=== PATIENT | female | born 1960 | race Caucasian/White ===

== ENCOUNTER 2023-07-21 15:43 | Outpatient (OUT) | payer BC, SELFPAY ==
--- NOTE | 2023-07-21 15:48 | MM_ITS ---
Patient: MARCOS DENTON Exam Date: 07/21/2023 : 1960 Gender:F Ordering : DR JOLENE HINOJOSA M.D. Admission #: [id number] Family : Order #: [id number] CLICK HERE TO VIEW EXAM RADIOLOGY REPORT PROCEDURE: MM TOMOSYNTHESIS SCREENING BI COMPARISON: MG MAMM SCREEN 3D ISA CAD, 01/21/2022. MG MAMM RT DIAG FU, 12/13/2018. INDICATIONS: Screening Calculator Name NCI Breast Cancer Risk Assessment Tool 5 Year Breast Cancer Risk 1.30% Lifetime Breast Cancer Risk 5.20% Personal Breast Cancer No Personal Ovarian Cancer No Treatments None Family Cancers Aunt-paternal with colon cancer at age ~60; Uncle-paternal with colon cancer at age 60. LOCATION: [facility] BREAST COMPOSITION: Heterogeneously dense,which may obscure small masses. FINDINGS: DIAGNOSTIC CATEGORY 1--NEGATIVE. NO CHANGE FROM COMPARISON ASSESSMENT. Scattered benign-appearing calcifications are present. Scattered benign-appearing lymph nodes are present. RIGHT BREAST: No significant suspicious finding. LEFT BREAST: No significant suspicious finding. RECOMMENDATIONS: ROUTINE MAMMOGRAM AND CLINICAL EVALUATION IN 12 MONTHS. PLEASE NOTE: A NORMAL MAMMOGRAM DOES NOT EXCLUDE THE POSSIBILITY OF BREAST CANCER. A CLINICALLY SUSPICIOUS PALPABLE LUMP SHOULD BE BIOPSIED. Dictated by: Norman Urban MD on 07/22/2023 at 08:09 Approved by: Norman Urban MD on 07/22/2023 at 08:11
== END 2023-07-21 15:44 | disposition home or self-care (01) ==
LOC: MAMMO 15:43
PROVIDERS: PCP Family Medicine; Visit Provider Family Medicine
DX: Z12.31 Encounter for screening mammogram for malignant neoplasm of breast (principal); Z80.0 Family history of malignant neoplasm of digestive organs
CPT/HCPCS: 77063; 77067

== ENCOUNTER 2024-04-24 11:28 | Outpatient (OUT) | payer MEDICARE, SELFPAY ==
--- OUTSIDE RECORDS SUMMARY | 2024-04-24 11:36 | XMS_ITS | CCD ---
Author Organization [facility] Care Team Providers Care Hand Clerical Verifier Name Role Phone Trudy Saucedo Unavailable DR TRUDY SAUCEDO Primary Care Unavailable PABLO GALLEGO Attending Unavailable PABLO GALLEGO Consulting Unavailable PABLO GALLEGO Admitting Unavailable REQUEST, NONE LISTED Consulting Unavaila ble REQUEST, NONE LISTED Admitting Unavaila ble MICAELA, DR TRUDY Mcpherson Primary Care Unavailable REQUEST, NONE LISTED Attending Unavaila ble MICAELA, DR TRUDY Mcpherson Attending Unavailable MICAELA, DR TRUDY Mcpherson Primary Care Unavailable SAUCEDO, DR TRUDY Mcpherson Admitting Unavailable BLOOMING GROVE, DR KARYN Cid Consulting Unavailable MICAELA, DR TRUDY Mcpherson Consulting Unavailable MD Xiang Reynsoo II Attending Provider [phone] Xiang Reynoso II Admitting Xiang Hughes II Attending Unavailkadeem e Medications Current Medications Medication Drug Class(es) Dates Sig (Normalized) Sig (Original) Multi Complete - (1 source) Multi Complete - as directed Orally Active Problems Active Problems Problem Classification Problem Date Documented Da te Episodic/Chronic Other non-traumatic joint disorders (1 source) Pain in left hip Episodic Other non-traumatic joint disorders (1 source) Pain in left elbow Episodic Residual codes; unclassified (1 source) Family history of stroke; Translations: [Family history of stroke] Episodic Unclassified (1 source) Pain in left hip; Translations: [Pain in left hip] Onset: 03-09-2023 Past or Other Problems Problem Classification Problem Date Documented Da te Episodic/Chronic Other ear and sense organ disorders (3 sources) Otalgia, left ear; Translations: [OTALGIA LEFT EAR] Onset: 02-20-2022 Episodic Other screening for suspected conditions (not mental disorders or infectious disease) (4 sources) Encounter for screening mammogram for malignant neoplasm of breast; Translations: [ENC SCR MAMMO MALIG NEOPLASM BREAST] Onset: 01-21-2022 Episodic Otitis media and related conditions (1 source) Otitis media, unspecified, left ear; Translations: [OTITIS MEDIA UNSPECIFIED LEFT EAR] Onset: 02-22-2022 Episodic Residual codes; unclassified (1 source) Family history of malignant neoplasm of digestive organs; Translations: [FAM HX MALIG NEOPLASM DIGESTIV ORGN] Onset: 01-25-2022 Episodic Results Test Name Value Interpretation Reference Range Facility XR hip LT min 2V(w/wo pelvis )*on 03-09-2023 XR hip LT min 2V(w/wo pelvis)* [facility] [place] [address] [place] [address] XRay Report Signed Patient: Marcos Ojeda MR#: [id number] : 1960 Acct:[id number] Age/Sex: 62 / F ADM Date: 03/09/23 Loc: [facility] Room: Type: [facility] Attending Dr: Xiang Reynoso II, MD Copies to: Xiang Reynoso MD Ordering Provider: Xiang Reynoso MD Date of Service: 03/09/23 XR/XR hip LT min 2V(w/wo pelvis)*: Left hip pain XR hip LT min 2V(w/wo pelvis)* 03/09/2023 9:04 AM SIGNS AND SYMPTOMS: Left hip pain PROTOCOL: Frontal radiograph the pelvis with crosstable lateral view of the left hip COMPARISON: None FINDINGS: There is narrowing of the joint spaces of the hips, slightly greater on the left compared to the right. The bony ring of the pelvis is intact. There is no evidence of fracture or dislocation. Vascular calcifications are present in the pelvis. XR/XR hip LT min 2V(w/wo pelvis)* IMPRESSION: Mild degenerative changes are noted in the hips left greater than right. No fracture or dislocation. Impression dictated by: Jesus Duggan M.D.03/09/2023 2:31 PM Dictation Location: [place] [address] Transcribed By: BETHANY 03/09/23 1431 Dictated By: Jesus Duggan II, MD 03/09/23 1430 Signed By: 03/09/23 1431 Normal [facility] CBC AUTO DIFFon 01-13-2023 BASO # 0.1 103/ul Normal 0.0-0.1 [facility] Comment on above: Performed By: #### D ATCBC #### [facility] [address] [place] [address] Dr. Palak Dawson Basophils/100 WBC (Bld) 1.0 % Normal 0.2-2.0 [facility] Comment on above: Performed By: #### D ATCBC #### [facility] [address] [place] [address] Dr. Palak Dawson EO # 0.1 103/ul Normal 0.0-0.7 [facility] Comment on above: Performed By: #### D ATCBC #### [facility] [address] [place] [address] Dr. Palak Dawson Eosinophils/100 WBC (Bld) 2.5 % Normal 0.9-7.0 [facility] Comment on above: Performed By: #### D ATCBC #### [facility] [address] [place] [address] Dr. Palak Dawson Erythrocyte distribution width (RBC) [Ratio] 12.6 % Normal 11.0-15.0 [facility] Comment on above: Performed By: #### D ATCBC #### [facility] [address] [place] [address] Dr. Palak Dawson Hematocrit (Bld) [Volume fraction] 41.8 % Normal 36.0-48.0 [facility] Comment on above: Performed By: #### D ATCBC #### [facility] [address] [place] [address] Dr. Palak Dawson Hemoglobin (Bld) [Mass/Vol] 13.7 g/dL Normal 12.0-16.0 [facility] Comment on above: Performed By: #### D ATCBC #### [facility] [address] [place] [address] Dr. Palak Dawson IG # 0.01 10e3/ul Normal 0.00-0.03 [facility] Comment on above: Performed By: #### D ATCBC #### [facility] [address] [place] [address] Dr. Palak Dawson IG % 0.2 % Normal 0.0-0.5 [facility] Comment on above: Performed By: #### D ATCBC #### [facility] [address] [place] [address] Dr. Palak Dawson LYMPH # 1.0 103/ul Critically low 1.2-3.8 [facility] Comment on above: Performed By: #### D ATCBC #### [facility] [address] [place] [address] Dr. Palak Dawson Lymphocytes/100 WBC (Bld) 21.4 % Normal 20.5-60.0 [facility] Comment on above: Performed By: #### D ATCBC #### [facility] [address] [place] [address] Dr. Palak Dawson MCH (RBC) [Entitic mass] 28.2 pg Normal 26.7-34.0 [facility] Comment on above: Performed By: #### D ATCBC #### [facility] [address] [place] [address] Dr. Palak Dawson MCHC (RBC) [Mass/Vol] 32.8 g/dL Normal 29.9-35.2 [facility] Comment on above: Performed By: #### D ATCBC #### [facility] [address] [place] [address] Dr. Palak Dawson MCV (RBC) [Entitic vol] 86.0 fL Normal 81.0-99.0 [facility] Comment on above: Performed By: #### D ATCBC #### [facility] [address] [place] [address] Dr. Palak Dawson MONO # 0.4 103/ul Normal 0.3-0.8 [facility] Comment on above: Performed By: #### D ATCBC #### [facility] [address] [place] [address] Dr. Palak Dawson Monocytes/100 WBC (Bld) 7.8 % Normal 1.7-12.0 [facility] Comment on above: Performed By: #### D ATCBC #### [facility] [address] [address] [address] Palak Dawson NEUT # 3.2 103/ul Normal 1.4-6.5 [facility] Comment on above: Performed By: #### D ATCBC #### [facility] [address] [place] [address] [address] Palak Dawson Neutrophils/100 WBC (Bld) 67.1 % Normal 43.0-75.0 [facility] Comment on above: Performed By: #### D ATCBC #### [facility] [address] [place] [address] Dr. Palak Dawson Platelet mean volume (Bld) [Entitic vol] 10.3 fL Normal 9.5-13.5 [facility] Comment on above: Performed By: #### D ATCBC #### [facility] [address] [place] [address] Dr. Palak Dawson PLT 211 103/ul Normal 150-450 [facility] Comment on above: Performed By: #### D ATCBC #### [facility] [address] [place] [address] Dr. Palak Dawson RBC 4.86 106/ul Normal 4.20-5.40 [facility] Comment on above: Performed By: #### D ATCBC #### [facility] [address] [place] [address] Dr. Palak Dawson WBC 4.8 103/ul Normal 4.0-11.0 [facility] Comment on above: Performed By: #### D ATCBC #### [facility] [address] [place] [address] Dr. Palak Dawson CHERY- BMP WITH LIPIDon 2022 Anion gap [Moles/Vol] 9.1 mmol/L Normal [facility] Comment on above: Performed By: #### D ATBMP #### [facility] [address] [place] [address] Dr. Palak Dawson Calcium [Mass/Vol] 9.4 mg/dL Normal 8.5-10.1 [facility] Comment on above: Performed By: #### D ATBMP #### [facility] [address] [address] [address] Palak Dawson Chloride [Moles/Vol] 107 mmol/L Normal 98-107 [facility] Comment on above: Performed By: #### D ATBMP #### [facility] [address] [address] [address] Palak Dawson Cholesterol [Mass/Vol] 234 mg/dL Critically high <=200 [facility] Comment on above: Performed By: #### D ATBMP #### [facility] [address] [address] [address] Palak Dawson Cholesterol in HDL [Mass/Vol] 81 mg/dL Critically high 40-60 [facility] Comment on above: Performed By: #### D ATBMP #### [facility] [address] [address] [address] Palak Dawson Cholesterol in LDL [Mass/Vol] 135.6 mg/dL Normal [facility] Comment on above: Performed By: #### D ATBMP #### [facility] [address] [address] [address] Palak Dawson CO2 [Moles/Vol] 30.1 mmol/L Normal 21.0-32.0 [facility] Comment on above: Performed By: #### D ATBMP #### [facility] [address] [address] [address] Palak Dawson Creatinine [Mass/Vol] 0.83 mg/dL Normal 0.55-1.02 [facility] Comment on above: Performed By: #### D ATBMP #### [facility] [address] [address] [address] Palak Dawson EGFR-AF TURKISH >60 Normal >=60 [facility] Comment on above: Performed By: #### D ATBMP #### [facility] [address] [address] [address] Palak Dawson EGFR-NON AF TURKISH >60 Normal >=60 [facility] Comment on above: Performed By: #### D ATBMP #### [facility] [address] [address] [address] Palak Dawson Glucose [Mass/Vol] 90 mg/dL Normal 74-106 [facility] Comment on above: Performed By: #### D ATBMP #### [facility] [address] [address] [address] Palak Dawson HDL NORMAL > or = 60 mg/dl - LOW CARDIOVASCULAR RISK <40 mg/dl - HIGH CARDIOVASCULAR RISK Normal [facility] Comment on above: Performed By: #### D ATBMP #### [facility] [address] [address] [address] Palak Dawson LDL CALC NORMAL SEE BELOW Normal [facility] Comment on above: Result Comment: <100 mg/dl OPTIMAL 100 - 129 mg/dl NEAR OR ABOVE OPTIMAL 130 - 159 mg/dl BORDERLINE HIGH 160 - 189 mg/dl HIGH >190 mg/dl VERY HIGH Performed By: #### D ATBMP #### [facility] [address] [address] [address] Palak Dawson Potassium [Moles/Vol] 4.2 mmol/L Normal 3.5-5.1 [facility] Comment on above: Performed By: #### D ATBMP #### [facility] [address] [address] [address] Palak Dawson Sodium [Moles/Vol] 142 mmol/L Normal 136-145 [facility] Comment on above: Performed By: #### D ATBMP #### [facility] [address] [address] [address] Palak Dawson Triglyceride [Mass/Vol] 87 mg/dL Normal <=150 [facility] Comment on above: Performed By: #### D ATBMP #### [facility] [address] [address] [address] Palak Dawson Urea nitrogen [Mass/Vol] 20.0 mg/dL Critically high 7.0-18.0 [facility] Comment on above: Performed By: #### D ATBMP #### [facility] [address] [address] [address] Palak Dawson Urea nitrogen/Creatinine [Mass ratio] 24.1 mg/mg Normal [facility] Comment on above: Performed By: #### D ATBMP #### [facility] [address] [address] [address] Palak Dawson VLDL CALC 17.4 mg/dL Normal [facility] Comment on above: Performed By: #### D ATBMP #### [facility] [address] [address] [address] Palak Dawson GLYCOHEMOGLOBIN A1Con 2022 ADA RECOMMENDATION SEE BELOW Normal [facility] Comment on above: Result Comment: ADA RECOMMENDED LIMIT 4.0 - 6.0 ADA THERAPEUTIC TARGET < 7.0 ACTION SUGGESTED > 7.0 Performed By: #### D ATA1C #### [facility] [address] [address] [address] Palak Dawson Glucose [Mass/Vol] 105 mg/dL Normal [facility] Comment on above: Performed By: #### D ATA1C #### [facility] [address] [address] [address] Palak Dawson HbA1c (Bld) [Mass fraction] 5.3 % Normal 4.5-6.2 [facility] Comment on above: Performed By: #### D ATA1C #### [facility] [address] [address] [address] Palak Dawson MG MAMM SCREEN 3D ISA CADon 01-21-2022 MG MAMM SCREEN 3D ISA CAD Patient: MARCOS OJEDA Exam Date: 01/21/2022 : 1960 Gender:F Ordering : DR TRUDY SAUCEDO M.D. Admission #: [id number] Family : Order #: [id number] CLICK HERE TO VIEW EXAM RADIOLOGY REPORT PROCEDURE: MAMMOGRAM SCREENING 3D BILATERAL CAD COMPARISON: MG MAMM SCREEN ISA W CAD, 12/08/2018. MG MAMM RT DIAG FU, 12/13/2018. INDICATIONS: Screening mammography Calculator Name NCI Breast Cancer Risk Assessment Tool 5 Year Breast Cancer Risk 1.20% Lifetime Breast Cancer Risk 5.30% Personal Breast Cancer No Personal Ovarian Cancer No Treatments None Family Cancers Aunt-paternal with colon cancer at age 60; Uncle-paternal with colon cancer at age 60. LOCATION: [facility] BREAST COMPOSITION: Heterogeneously dense,which may obscure small masses. FINDINGS: DIAGNOSTIC CATEGORY 2--BENIGN FINDING. NO CHANGE FROM COMPARISON. Scattered benign-appearing calcifications are present. Scattered benign-appearing lymph nodes are present. RIGHT BREAST: No significant suspicious finding. LEFT BREAST: No significant suspicious finding. RECOMMENDATIONS: ROUTINE MAMMOGRAM AND CLINICAL EVALUATION IN 12 MONTHS. PLEASE NOTE: A NORMAL MAMMOGRAM DOES NOT EXCLUDE THE POSSIBILITY OF BREAST CANCER. A CLINICALLY SUSPICIOUS PALPABLE LUMP SHOULD BE BIOPSIED. Dictated by: Karyn Urban MD on 01/25/2022 at 07:28 Approved by: Karyn Urban MD on 01/25/2022 at 07:30 Normal [facility] Vital Signs Date Time Vital Sign Value Performing Clinician Facility 01-13-2023 10:30-0400 Body height 160.02 cm Trudy Saucedo Other [facility] Other 01-13-2023 10:30-0400 Body mass index (BMI) [Ratio] 26.04 kg/m2 Trudy Saucedo Other [facility] Other 01-13-2023 10:30-0400 Body weight 66.68 kg Trudy Saucedo Other [facility] Other 01-13-2023 10:30-0400 Diastolic blood pressure 62 mm[Hg] Trudy Saucedo Other [facility] Other 01-13-2023 10:30-0400 SaO2% (BldA) [Mass fraction] 97 % Trudy Saucedo Other [facility] Other 01-13-2023 10:30-0400 Systolic blood pressure 110 mm[Hg] Trudy Saucedo Other [facility] Other Encounters Encounter Date Encounter Type Care Provider Facility Start: 03-09-2023 End: 03-09-2023 ambulatory Xiang Reynoso II Facility:[facility] Start: 03-09-2023 End: 03-09-2023 ambulatory MD Xiang Reynoso II Work Phone: [facility] Work Phone: Start: 03-09-2023 End: 03-09-2023 Patient encounter procedure MD Xiang Reynoso II Work Phone: [facility] Start: 01-13-2023 Encounter for genera l adult medical examination without abnormal findings Trudy Saucedo [facility] Start: 01-13-2023 Periodic preventive med est patient 40-64yrs Trudy Saucedo [facility] Start: 01-13-2023 End: 01-14-[address] MEJIA LISTED REQUEST [facility] Other Start: 02-20-2022 End: 02-20-[address] TRUDY SAUCEDO Facility:[facility] Start: 01-21-2022 End: 01-22-[address] TRUDY SAUCEDO Facility:[facility] Procedures Date Procedure Procedure Detail Performing Clinician Start: 03-09-2023 Plain X-ray of left hip MD Xiang Reynoso II Work Phone: Payers Date Payer Category Payer [facility] [id number] 1961 Self-pay 1960 Unknown [id number] 1960 Unknown [id number] Unknown [id number] [id number] [id number] Unknown [id number] Social History Date Type Detail Facility Unknown if ever smoked [facility] Other Sex Assigned At Sex Assigned At Bir th [facility] Other Start: 1960 Sex Assigned At Female F [facility] Evaluation note 01-13-2023 Note Date & Type Note Facility 01-13-2023 Evaluation note Encounter Date Diagnosis Assessment Notes Jan, Wellness examination (ICD-10 - Z00.00) Discussed weight loss, diet/exercise and healthy lifestyle. He has been fully vaccinated for COVID-19. Health recommendations and screenings for his age reviewed and discussed with patient. Patient to f/u in 6 months, sooner as needed. Labs were placed and instructed to be fasting, will need to be completed prior to next apt. Jan, Left hip pain (ICD-10 - M25.552) Referral to Dr. Pollack Jan, Left elbow pain (ICD-10 - M25.522) Xray at [facility] - L hand dominant and nerve pain radiates to L hand with numbness. [facility] Other Evaluation note Note Date & Type Note Facility Evaluation note No assessment information availa [facility] Work Phone: History general Narrative - Reported Note Date & Type Note Facility History general Narrative - Reported Type Medical History Family history of stroke Surgical History COLONOSCOPY Surgical History TUBULAR ADENOMA Surgical History LASIK Surgical History HYST BSO Hospitalization History SEE SURGICAL HX [facility] [employer] Other Reason for Referral Reason *Waiting for appt 3 years of hip and mainly groin pain. Xray in 2020 showed mild arthritis Diagnosis 1 Left hip pain (M25.5 52) Referral Organization [facility] Referring Provider First Name Trudy Referring Provider Last Name Micaela Referring Provider Specialty Family [facility] Referred Organization Unknown Facility Referred Provider Xiang Reynoso II Referred Provider Specialty Orthopedic S urgery Referral Priority Routine General Notes Cathi Carrasco 12:42:40 PM >received tody, sent P2P Summary Purpose Family History No Family History Records FoundNo Family History Records Found Advance Directives No Advanced Directives Records FoundNo Advanced Directives Records Found Additional Source Comments REASON FOR VISIT (unrecogniz ed section and content) Wellness INFORMATION SOURCE (unrecogn ized section and content) DATE CREATED AUTHOR 01/13/2023 [facility] DATE CREATED AUTHOR 'S ORGANIZ ATION 03/14/2023 [facility] Care Teams (unrecognized sec tion and content) Team Status: Inactive Member Role Status Dates Xiang Reynoso II, MD Attending Provider Active Goals (unrecognized section and content) Goals may be documented in a n alternate section FOR RECORDS PERTAINING TO PATIENTS WHO ARE OR HAVE BEEN ENROLLED IN A CHEMICAL DEPENDENCY/SUBSTANCEABUSE PROGRAM, SOME INFORMATION MAY BE OMITTED. This clinical summary was aggregated from multiple sources. Caution should be exercised in using it in the provision of clinical care. This summary normalizes information from multiple sources, and as a consequence, information in this document may materially change the coding, format and clinical context of patient data. In addition, data may be omitted in some cases. CLINICAL DECISIONS SHOULD BE BASED ON THE PRIMARY CLINICAL RECORDS. [facility]. provides no warranty or guarantee of the accuracy or completeness of information in this document.
--- NOTE | 2024-04-24 11:42 | XR_ITS ---
[address] [address] Patient Name: MARCOS DENTON MRN: [id number] date: 1960 Sex: F Assigned Patient Location: LAB Current Patient Location: Accession/Order Number: [id number] Exam Date: 04/24/2024 11:43 Report Date: 04/25/2024 07:18 At the request of: JOLENE HINOJOSA Procedure: XR shoulder LT min 2V PROCEDURE: XR shoulder LT min 2V COMPARISON: None. HISTORY: Pain In Left Shoulder M25.512 FINDINGS: BONES:No acute fracture or dislocation. Mild degenerative changes of the greater tuberosity SOFT TISSUES:Negative. No visible soft tissue swelling. EFFUSION:None visible. OTHER: Negative. XR/XR shoulder LT min 2V IMPRESSION: No acute abnormality Electronically authenticated by: KARYN HUNTER Date: 04/25/2024 07:18
== END 2024-04-24 11:29 | disposition home or self-care (01) ==
LOC: LAB 11:32
PROVIDERS: PCP Family Medicine; Visit Provider Family Medicine
DX: M25.512 Pain in left shoulder (principal)
CPT/HCPCS: 73030

== ENCOUNTER 2024-05-02 09:52 | Outpatient (RCR) | payer MEDICARE, SELFPAY | END 2024-05-25 09:51 | disposition home or self-care (01) | LOC: PT 09:52 | PROVIDERS: PCP Family Medicine; Visit Provider Family Medicine | DX: M25.512 Pain in left shoulder (principal) | CPT/HCPCS: 97110; 97140; 97161; G0283 ==

== ENCOUNTER 2024-11-27 15:35 | Outpatient (OUT) | payer MEDICARE, SELFPAY ==
--- NOTE | 2024-11-27 15:39 | MM_ITS ---
Patient Name: MARCOS DENTON MR#: [id number] : 1960 Exam Date: 11/27/2024 Ordering Doctor: DR Trudy Saucedo M.D. RADIOLOGY REPORT PROCEDURE: MM TOMOSYNTHESIS SCREENING BI COMPARISON: MM TOMOSYNTHESIS SCREENING BI, 07/21/2023. MG MAMM SCREEN 3D ISA CAD, 01/21/2022. MG MAMM RT DIAG FU, 12/13/2018. MG MAMM ISA SCRN W CAD DIG, 07/18/2015. INDICATIONS: Screening Calculator Name NCI Breast Cancer Risk Assessment Tool 5 Year Breast Cancer Risk 1.30% Lifetime Breast Cancer Risk 4.80% Personal Breast Cancer No Personal Ovarian Cancer No Treatments None Family Cancers Aunt-paternal with colon cancer at age ~60; Uncle-paternal with colon cancer at age 60. LOCATION: [facility] BREAST COMPOSITION: The breasts are heterogeneously dense,which may obscure small masses. FINDINGS: LEFT BREAST: No significant suspicious finding. RIGHT BREAST: No significant suspicious finding. DIAGNOSTIC CATEGORY 1--NEGATIVE. NO CHANGE FROM COMPARISON ASSESSMENT. RECOMMENDATIONS: ROUTINE MAMMOGRAM AND CLINICAL EVALUATION IN 12 MONTHS. PLEASE NOTE: A NORMAL MAMMOGRAM DOES NOT EXCLUDE THE POSSIBILITY OF BREAST CANCER. A CLINICALLY SUSPICIOUS PALPABLE LUMP SHOULD BE BIOPSIED. Dictated by: Jesus Duggan MD on 11/27/2024 at 16:25 Approved by: Jesus Duggan MD on 11/27/2024 at 16:26
--- OUTSIDE RECORDS SUMMARY | 2024-11-27 15:48 | XMS_ITS | CCD ---
Author Organization [facility] Care Team Providers Care Job Developer Name Role Phone Trudy Hinojosa Unavailable DR TRUDY HINOJOSA Primary Care Unavailable PABLO GALLEGO Attending Unavailable PABLO GALLEGO Consulting Unavailable PABLO GALLEGO Admitting Unavailable REQUEST, NONE LISTED Consulting Unavaila ble REQUEST, NONE LISTED Admitting Unavaila ble MICAELA, DR TRUDY Mcpherson Primary Care Unavailable REQUEST, NONE LISTED Attending Unavaila ble HINOJOSA, DR TRUDY Mcpherson Attending Unavailable HINOJOSA, DR RTUDY Mcpherson Primary Care Unavailable HINOJOSA, DR TRUDY Mcpherson Admitting Unavailable WYKOFF, DR KARYN Cid Consulting Unavailable HINOJOSA, DR TRUDY Mcpherson Consulting Unavailable MD Xiang Reynoso II Attending Provider [phone] MD Trudy Hinojosa Primary Care Provider [facility] Attending Provider Trudy Hinojosa Primary Care Unavailable [facility] Attending Unavailable [facility] Admitting Unavailable Trudy Hinojosa MD Primary Care Provider [phone] MD Trudy Hinojosa Primary Care Provider [phone] [facility] Attending Provider BLAYNE MCMAHON Attending Unavailable BLAYNE MCMAHON Referring Unavailable Medications Current Medications Medication Drug Class(es) Dates Sig (Normalized) Sig (Original) Multi Complete - (1 source) Multi Complete - as directed Orally Active Multivitamin (Daily Multi-Vitamin) tablet (4 sources) Start: 04-23-2024 take 1 tablet by mouth once daily Multivitamin (Daily Multi-Vitamin) tablet Active 1 TAB PO Daily April 22, 2024 11:00pm Start: 04-23-2024 take 1 tablet by patricia th once daily Multivitamin (Daily Multi-Vitamin) tablet Active 1 TAB PO Daily April 23, 2024 12:00am multivitamin with minerals (Centrum) 9-200 mg-mcg tablet split tablet (3 sources) Start: 04-23-2024 multivitamin w ith minerals (Centrum) 9-200 mg-mcg tablet split tablet 1 tablet 04/23/2024 Active Completed/Discontinued Medications Medication Drug Class(es) Dates Sig (Normalized) Sig (Original) 1 ml methylPREDNISolone acetate 40 mg/ml injection (4 sources) Corticosteroid Start: End: methylPREDNISolone acetate (DEPO-Medrol) injection 40 mg Start: 08-06-2024 End: 08-06-2024 40 mg, Intra-articular, Once PRN Procedure, Starting on Tue08/06/24 at 0950, For 1 dose Problems Active Problems Problem Classification Problem Date Documented Da te Episodic/Chronic Immunizations and screening for infectious disease (1 source) Encounter for immunization; Translations: [Encounter for immunization] Onset: 07-26-2024 Episodic Osteoarthritis (2 sources) Primary osteoarthritis, left shoulder; Translations: [Arthropathy, unspecified, shoulder region] 07-30-2024 Chronic Other non-traumatic joint disorders (2 sources) Derangement of left shoulder joint; Translations: [Other specific joint derangements of left shoulder, not elsewhere classified] 08-19-2024 Chronic Other non-traumatic joint disorders (1 source) Pain in left hip Episodic Other non-traumatic joint disorders (1 source) Pain in left elbow Episodic Other non-traumatic joint disorders (8 sources) Pain in left shoulder; Translations: [Left shoulder pain] 04-24-2024 Episodic Other non-traumatic joint disorders (4 sources) Disorder of shoulder; Translations: [Other specified joint disorders, left shoulder] 08-06-2024 Episodic Residual codes; unclassified (1 source) Family history of stroke; Translations: [Family history of stroke] Episodic Past or Other Problems Problem Classification Problem [...] Test Name Value Interpretation Reference Range Facility MR SHOULDER LEFT WO IV CONTR Naomi 09-05-2024 MR SHOULDER LEFT WO IV CONTRAST EXAMINATION/TECHNIQUE: MR SHOULDER LEFT WO IV CONTRAST HISTORY: Left shoulder pain. Decreased range of motion. COMPARISON: Radiographs 04/24/2024. RESULT: Rotator Cuff Tendons: Mild to moderate tendinosis involving supraspinatus with small area of low-grade partial-thickness bursal sided fraying/tearing of the distal fibers at the footplate, without full-thickness tear. Mild tendinosis involving infraspinatus, without tear. Subscapularis and teres minor appears intact. Long Head Biceps Tendon: Appears intact with appropriate location. Muscle: Muscle bulk and signal intensity are within normal limits. Labrum: Areas of fraying superiorly. Bones and Marrow: No evidence of recent fracture, or bone marrow replacing process. Reactive cystic change at supraspinatus and infraspinatus insertions. Glenohumeral Joint: Cartilage appears preserved. Small joint effusion. Acromioclavicular Joint: Mild degenerative changes. Other: Trace subacromial-subdeltoid bursal thickening/fluid. IMPRESSION: Rotator cuff tendinosis with low-grade partial-thickness bursal sided fraying/tearing of distal supraspinatus. No full-thickness tear. ELECTRONICALLY SIGNED BY: Peter Andrade MD Normal Not Available No Panel Informationon 08-06 Blayne Mcmahon NP 08/06/2024 9:51 AM L Inj/Asp: L subacromial bursa on 08/06/2024 9:50 AM Indications: pain Details: 20 G needle, posterior approach Medications: 40 mg methylPREDNISolone acetate 40 MG/ML Utilizing aseptic technique with universal precautions . Pt given injection Left Shoulder SA space Procedure, treatment alternatives, risks and benefits explained, specific risks discussed. Consent was given by the patient. Patient was prepped and draped in the usual sterile fashion. [facility] CBC AUTO DIFFon 01-13-2023 BASO # 0.1 103/ul Normal 0.0-0.1 [facility] Comment on above: Performed By: #### D ATCBC #### [facility] [address] [place] [address] Dr. Palak Dawson Basophils/100 WBC (Bld) 1.0 % Normal 0.2-2.0 [facility] Comment on above: Performed By: #### D ATCBC #### [facility] [address] [place] [address] Dr. Palak Dawson EO # 0.1 103/ul Normal 0.0-0.7 [facility] Comment on above: Performed By: #### D ATCBC #### [facility] [address] [place] [address] Dr. Palak Dawson Eosinophils/100 WBC (Bld) 2.5 % Normal 0.9-7.0 [facility] Comment on above: Performed By: #### D ATCBC #### [facility] [address] [place] [address] Dr. Palak Dawson Erythrocyte distribution width (RBC) [Ratio] 12.6 % Normal 11.0-15.0 [facility] Comment on above: Performed By: #### D ATCBC #### [facility] [address] [place] [address] Dr. Palak Dawson Hematocrit (Bld) [Volume fraction] 41.8 % Normal 36.0-48.0 [facility] Comment on above: Performed By: #### D ATCBC #### [facility] [address] [place] [address] Dr. Palak Dawson Hemoglobin (Bld) [Mass/Vol] 13.7 g/dL Normal 12.0-16.0 [facility] Comment on above: Performed By: #### D ATCBC #### [facility] [address] [place] [address] Dr. Palak Dawson IG # 0.01 10e3/ul Normal 0.00-0.03 [facility] Comment on above: Performed By: #### D ATCBC #### [facility] [address] [address] [address] Palak Dawson IG % 0.2 % Normal 0.0-0.5 [facility] Comment on above: Performed By: #### D ATCBC #### [facility] [address] [place] [address] Dr. Palak Dawson LYMPH # 1.0 103/ul Critically low 1.2-3.8 [facility] Comment on above: Performed By: #### D ATCBC #### [facility] [address] [place] [address] Dr. Palak Dawson Lymphocytes/100 WBC (Bld) 21.4 % Normal 20.5-60.0 [facility] Comment on above: Performed By: #### D ATCBC #### [facility] [address] [place] [address] Dr. Palak Dawson MCH (RBC) [Entitic mass] 28.2 pg Normal 26.7-34.0 [facility] Comment on above: Performed By: #### D ATCBC #### [facility] [address] [place] [address] Dr. Palak Dawson MCHC (RBC) [Mass/Vol] 32.8 g/dL Normal 29.9-35.2 [facility] Comment on above: Performed By: #### D ATCBC #### [facility] [address] [place] [address] Dr. Palak Dawson MCV (RBC) [Entitic vol] 86.0 fL Normal 81.0-99.0 [facility] Comment on above: Performed By: #### D ATCBC #### [facility] [address] [place] [address] Dr. Palak Dawson MONO # 0.4 103/ul Normal 0.3-0.8 [facility] Comment on above: Performed By: #### D ATCBC #### [facility] [address] [place] [address] Dr. Palak Dawson Monocytes/100 WBC (Bld) 7.8 % Normal 1.7-12.0 [facility] Comment on above: Performed By: #### D ATCBC #### [facility] [address] [place] [address] Dr. Palak Dawson NEUT # 3.2 103/ul Normal 1.4-6.5 [facility] Comment on above: Performed By: #### D ATCBC #### [facility] [address] [place] [address] Dr. Palak Dawson Neutrophils/100 WBC (Bld) 67.1 % Normal 43.0-75.0 [facility] Comment on above: Performed By: #### D ATCBC #### [facility] [address] [place] [address] Dr. Palak Dawson Platelet mean volume (Bld) [Entitic vol] 10.3 fL Normal 9.5-13.5 [facility] Comment on above: Performed By: #### D ATCBC #### [facility] [address] [place] [address] Dr. Palak Dawson PLT 211 103/ul Normal 150-450 [facility] Comment on above: Performed By: #### D ATCBC #### [facility] [address] [place] [address] Dr. Palak Dawson RBC 4.86 106/ul Normal 4.20-5.40 [facility] Comment on above: Performed By: #### D ATCBC #### [facility] [address] [place] [address] Dr. Palak Dawson WBC 4.8 103/ul Normal 4.0-11.0 [facility] Comment on above: Performed By: #### D ATCBC #### [facility] [address] [place] [address] Dr. Palak Dawson CHERY- BMP WITH LIPIDon 2022 Anion gap [Moles/Vol] 9.1 mmol/L Normal [facility] Comment on above: Performed By: #### D ATBMP #### [facility] [address] [place] [address] Dr. Palak Dawson Calcium [Mass/Vol] 9.4 mg/dL Normal 8.5-10.1 [facility] Comment on above: Performed By: #### D ATBMP #### [facility] [address] [address] [address] Palak Dawson Chloride [Moles/Vol] 107 mmol/L Normal 98-107 [facility] Comment on above: Performed By: #### D ATBMP #### [facility] [address] [address] [address] Palak Dawson Cholesterol [Mass/Vol] 234 mg/dL Critically high <=200 [facility] Comment on above: Performed By: #### D ATBMP #### [facility] [address] [address] [address] Palak Dawson Cholesterol in HDL [Mass/Vol] 81 mg/dL Critically high 40-60 [facility] Comment on above: Performed By: #### D ATBMP #### [facility] [address] [address] [address] Palak Dawson Cholesterol in LDL [Mass/Vol] 135.6 mg/dL Normal [facility] Comment on above: Performed By: #### D ATBMP #### [facility] [address] [address] [address] Palak Dawson CO2 [Moles/Vol] 30.1 mmol/L Normal 21.0-32.0 [facility] Comment on above: Performed By: #### D ATBMP #### [facility] [address] [address] [address] Palak Dawson Creatinine [Mass/Vol] 0.83 mg/dL Normal 0.55-1.02 [facility] Comment on above: Performed By: #### D ATBMP #### [facility] [address] [address] [address] Palak Dawson EGFR-AF VIETNAMESE >60 Normal >=60 [facility] Comment on above: Performed By: #### D ATBMP #### [facility] [address] [address] [address] Palak Dawson EGFR-NON AF VIETNAMESE >60 Normal >=60 [facility] Comment on above: Performed By: #### D ATBMP #### [facility] [address] [address] [address] Palak Dawson Glucose [Mass/Vol] 90 mg/dL Normal 74-106 [facility] Comment on above: Performed By: #### D ATBMP #### [facility] [address] [address] [address] Palak Dawson HDL NORMAL > or = 60 mg/dl - LO W CARDIOVASCULAR RISK <40 mg/dl - HIGH CARDIOVASCULAR RISK Normal [facility] Comment on above: Performed By: #### D ATBMP #### [facility] [address] [address] [address] Palak Dawson LDL CALC NORMAL SEE BELOW Normal [facility] Comment on above: Result Comment: <100 mg/dl OPTIMAL 100 - 129 mg/dl NEAR OR ABOVE OPTIMAL 130 - 159 mg/dl BORDERLINE HIGH 160 - 189 mg/dl HIGH >190 mg/dl VERY HIGH Performed By: #### D ATBMP #### [facility] [address] [address] [address] Palak Dawson Potassium [Moles/Vol] 4.2 mmol/L Normal 3.5-5.1 [facility] Comment on above: Performed By: #### D ATBMP #### [facility] [address] [address] [address] Palak Dawson Sodium [Moles/Vol] 142 mmol/L Normal 136-145 [facility] Comment on above: Performed By: #### D ATBMP #### [facility] [address] [address] [address] Palak Dawson Triglyceride [Mass/Vol] 87 mg/dL Normal <=150 [facility] Comment on above: Performed By: #### D ATBMP #### [facility] [address] [address] [address] Palak Dawson Urea nitrogen [Mass/Vol] 20.0 mg/dL Critically high 7.0-18.0 [facility] Comment on above: Performed By: #### D ATBMP #### [facility] [address] [address] [address] Palak Dawson Urea nitrogen/Creatinine [Mass ratio] 24.1 mg/mg Normal [facility] Comment on above: Performed By: #### D ATBMP #### [facility] [address] [address] [address] Palak Dawson VLDL CALC 17.4 mg/dL Normal [facility] Comment on above: Performed By: #### D ATBMP #### [facility] [address] [address] [address] Palak Dawson GLYCOHEMOGLOBIN A1Con 2022 ADA RECOMMENDATION SEE BELOW Normal [facility] Comment on above: Result Comment: ADA RECOMMENDED LIMIT 4.0 - 6.0 ADA THERAPEUTIC TARGET < 7.0 ACTION SUGGESTED > 7.0 Performed By: #### D ATA1C #### [facility] [address] [address] [address] Palak Dawson Glucose [Mass/Vol] 105 mg/dL Normal [facility] Comment on above: Performed By: #### D ATA1C #### [facility] [address] [address] [address] Palak Dawson HbA1c (Bld) [Mass fraction] 5.3 % Normal 4.5-6.2 [facility] Comment on above: Performed By: #### D ATA1C #### [facility] [address] [address] [address] Palak Dawson MG MAMM SCREEN 3D ISA CADon 01-21-2022 MG MAMM SCREEN 3D ISA CAD Patient: MARCOS DENTON Exam Date: 01/21/2022 : 1960 Gender:F Ordering : DR TRUDY HINOJOSA M.D. Admission #: [id number] Family : Order #: [id number] CLICK HERE TO VIEW EXAM RADIOLOGY REPORT [...] colon cancer at age 58. LOCATION: [facility] BREAST COMPOSITION: Heterogeneously dense,which may obscure small [...] Urban MD on 01/25/2022 at 07:30 Normal [facility] Vital Signs Date Time Vital Sign Value Performing Clinician Facility 04-24-2024 10:34-0400 Body height 157.48 cm [facility] 04-24-2024 10:34-0400 Body mass index (BMI) [Ratio] 27.1 kg/m2 [facility] 04-24-2024 10:34-0400 Body weight 67.13 kg [facility] 04-24-2024 10:34-0400 Diastolic blood pressure 79 mm[Hg] [facility] 04-24-2024 10:34-0400 Heart rate 73 /min [facility] 04-24-2024 10:34-0400 Systolic blood pressure 122 mm[Hg] [facility] 01-13-2023 10:30-0400 Body height 160.02 cm Trudy Hinojosa Other [facility] Other 01-13-2023 10:30-0400 Body mass index (BMI) [Ratio] 26.04 kg/m2 Trudy Hinojosa Other [facility] Other 01-13-2023 10:30-0400 Body weight 66.68 kg Trudy Hinojosa Other [facility] Other 01-13-2023 10:30-0400 Diastolic blood pressure 62 mm[Hg] Trudy Hinojosa Other [facility] Other 04-13-2023 10:30-0400 SaO2% (BldA) [Mass fraction] 97 % Trudy Hinojosa Other [facility] Other 01-13-2023 10:30-0400 Systolic blood pressure 110 mm[Hg] Trudy Hinojosa Other [facility] Other Encounters Encounter Date Encounter Type Care Provider Facility Start: 09-05-2024 End: 09-05-2024 ambulatory BLAYNE B APLING Not Available Start: 08-14-2024 End: 08-15-2024 Telephone encounter Blayne Ram Apling [employer] Work Phone: [facility] Comment on above: MRI Start: 08-06-2024 End: 08-06-2024 Bamboo flowsheet Blayne B Apling [employer] Work Phone: [facility] Start: 08-06-2024 End: 08-06-2024 Bamboo flowsheet Blayne Ram Apling [employer] Work Phone: [facility] Start: 08-06-2024 End: 08-06-2024 Office outpatient new 45 minutes Blayne Ram Apling [employer] Work Phone: [facility] Comment on above: Left shoulder pain, unspecified chronicity (Primary Dx); Arthritis of left shoulder region; Impingement of left shoulder Start: 08-06-2024 End: 08-06-2024 ambulatory BLAYNE B APLING Not Available Start: 07-26-2024 End: 07-26-2024 ambulatory MD Trudy Hinojosa Work Phone: [facility] Work Phone: Start: 07-26-2024 End: 07-26-2024 Patient encounter procedure MD Trudy Hinojosa Work Phone: [facility] [address] Work Phone: Start: 06-25-2024 ambulatory MD Trudy arellano Work Phone: [facility] Work Phone: Start: 06-25-2024 Non-patient / Non-visit [facility] Work Phone: Start: 04-24-2024 Patient encounter status [facility] Start: 04-24-2024 End: 04-24-2024 ambulatory [facility] Work Phone: Start: 04-24-2024 End: 04-24-2024 Encounter for general adult medical examination without abnormal findings [facility] Start: 04-24-2024 End: 04-24-2024 Patient encounter procedure [facility] Work Phone: Start: 03-09-2023 End: 03-09-2023 ambulatory MD Xiang Reynoso II Work Phone: [facility] Work Phone: Start: 03-09-2023 End: 03-09-2023 Patient encounter procedure MD Xiang Reynoso II Work Phone: [facility] Start: 01-13-2023 Encounter for genera l adult medical examination without abnormal findings Trudy Hinojosa [facility] Start: 01-13-2023 Periodic preventive med est patient 40-64yrs Trudy Hinojosa [facility] Start: 01-13-2023 End: 01-14-[address] MEJIA LISTED REQUEST [facility] Other Start: 02-20-2022 End: 02-20-[address] TRUDY HINOJOSA Facility:[facility] Start: 01-21-2022 End: 01-22-[address] TRUDY HINOJOSA Facility:[facility] Procedures Date Procedure Procedure Detail Performing Clinician Start: 08-06-2024 Arthrocentesis aspir &/inj major jt/bursa w/o us Blayne Mcmahon [employer] Work Phone: Start: 03-09-2023 Plain X-ray of left hip MD Xiang Reynoso II Work Phone: Plan of Treatment Date Care Activity Detail Author Start: 09-05-2024 End: 09-05-2024 Professional / ancillary services management 09/05/2024 3:00 PM EST Ancillary Procedure [facility] MR [address] [place] [id number] [facility] Start: 08-20-2024 End: 08-20-2024 Patient encounter procedure 08/20/2024 8:00 AM EST Office Visit [facility] [address] [facility] [address] [place] [address] Blayne Mcmahon, [employer] [address] [place] [address] [facility] Start: 08-14-2024 End: 08-14-2025 MR Shoulder - left WO contrast MR shoulder left wo IV contrast Imaging Routine Internal derangement of left shoulder Expected: 08/14/2024 (Approximate), Expires: 08/14/2025 [facility] Work Phone: Comment on above: Expected: 08/14/2024 (Approximate), Expires: 08/14/2025 Start: 08-06-2024 End: 08-06-2024 Patient encounter procedure 08/06/2024 9:15 AM EST Office Visit [facility] [address] [facility] [address] [place] [address] Blayne Mcmahon, [employer] [address] [facility] [address] [place] [address] Left shoulder pain, unspecified chronicity (Primary Dx); Arthritis of left shoulder region [facility] Comment on above: Left shoulder pain, unspecified chronicity (Primary Dx); Arthritis of left shoulder region Start: 06-25-2024 Patient referral [facility] Work Phone: Comprehensive metabo lic 2000 panel - Serum or Plasma [facility] Patient referral [facility] Work Phone: XR Shoulder - left Views [facility] Payers Date Payer Category Payer Medicare (Managed Care) [facility] MEDICARE [id number] 2023 Private Health Insurance [facility] [id number] 2023 Private Health Insurance [id number] 2023 Medicare MEDICARE [id number] 2023 Medicare [id number] 1961 [facility] [id number] 1961 Self-pay 1960 Unknown [id number] 1960 Unknown [id number] 1960 Unknown [id number] 1960 Unknown [id number] Private Health Insurance [facility] [id number] Unknown [id number] Unknown [id number] Social History Date Type Detail Facility Unknown if ever smoked [facility] [employer] Other Start: 08-06-2024 Sex Assigned At N [facility] [employer] Other Start: 1960 Sex Assigned At Female F [facility] Tobacco smoking status [facility] Tobacco smoking consumption unknown [facility] Start: 1960 Sex assigned at Not on file [facility] Start: 08-06-2024 Tobacco smoking status SDIS Ex-smoker [facility] History of tobacco use Current smoker [facility] History of tobacco use Cigarette Smoker [facility] Start: 08-06-2024 Tobacco use and exposure Smokeless tobacco non-user [facility] Start: 08-06-2024 Alcoholic beverage intake Current drinker of alcohol (finding) [facility] Start: 08-06-2024 History of Social function [facility] Telephone encounter Note 08-14-2024 Telephone Encounter - Deb Tommie - 08/14/2024 9:43 AM EST Note Date & Type Note Facility 08-14-2024 Telephone encount er Note Marisol called and stated she was seen on 08/06 and got an inj in Lt shoulder, she said its has helped some, it does not hurt as much, but still aches. She was supposed to have follow up on 08/20 but she stated you mentioned an MRI next. She would like to get this done, if possible at [facility]. Please advise. Her call back [phone] [facility] Healthcare Note 08-14-2024 Telephone Encounter - Deb Reilly - 08/14/2024 9:43 AM EST Note Date & Type Note Facility 08-14-2024 Miscellaneous Notes Formattin g of this note might be different from the original. Marisol called and stated she was seen on 08/06 and got an inj in Lt shoulder, she said its has helped some, it does not hurt as much, but still aches. She was supposed to have follow up on 08/20 but she stated you mentioned an MRI next. She would like to get this done, if possible at [facility]. Please advise. Her call back [phone] documented in this encounter [facility] History of Present illness Narrative 08-06-2024 Blayne Mcmahon NP - 08/06/2024 9:15 AM EST Note Date & Type Note Facility 08-06-2024 History of Presen t illness Narrative Associated Order(s): L Inj/Asp: L subacromial bursa Post-Procedure Diagnose(s): Impingement of left shoulder Images from the original note were not included. Subjective Patient ID: Marisol Denton is a 63 y.o. female. LT Shoulder Pt is LT handed She has been having pain since 2023. She went to her pcp on 04/24/24 and was ordered xrays of the shoulder. States she went to P.T. in May #7 visits (somewhere across [facility]) and had no relief. States pain started June 2023 (1 year 2 months) NKI. Describes pain as an ache anterior shoulder to her elbow. States her hand went numb for 2 months (from Jun 2023- Aug 2023) on and off and would wake her at night. Admits N/T in her LT hand this past week, states it has not went numb since last August. Limited ROM, pain reaching behind her back and above her head. Pain is a constant dull ache, anterior shoulder and into her bicep and stops at her elbow. She alternates motrin and tyl as needed. Admits voltaren gel occas gets relief. Pain at rest 5/10. Pain at worst 8-9/10 with certain movements and when lifting. Occas wakes at night. She avoids heavy lifting with her LT arm. States she broke her humeral head 13 years ago she believes it was her RT but is not sure. Dr. 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 Objective Left Shoulder Exam Range of Motion Active abduction: 170 Muscle Strength Abduction: 4-/5 Tests Szymanski test: positive Drop arm: negative Shoulder Musculoskeletal Exam Palpation Left Crepitus: no crepitus Tenderness: present Anterior shoulder: moderate Range of Motion Left Active ROM: pain. Active forward elevation: 170. Shoulder active abduction: 170. Active external rotation at side: 50. Internal rotation: L1. Strength Left Abduction: 4-/5. Special Tests Left Rotator Cuff Signs Szymanski test: positive Lift-off sign: negative Drop arm test: negative L Inj/Asp: L subacromial bursa on 08/06/2024 9:50 AM Indications: pain Details: 20 G needle, posterior approach Medications: 40 mg methylPREDNISolone acetate 40 MG/ML Utilizing aseptic technique with universal precautions . Pt given injection Left Shoulder SA space Procedure, treatment alternatives, risks and benefits explained, specific risks discussed. Consent was given by the patient. Patient was prepped and draped in the usual sterile fashion. I reviewed the xrays of the left shoulder done on 04/24/24 at [facility] reveals greater tuberosity arthritis. I reviewed the pcp note from 04/24/24 in addition and referred to ortho. Assessment/Plan Encounter Diagnoses: ICD-10-CM 1. Left shoulder pain, unspecified chronicity M25.512 2. Arthritis of left shoulder region M19.012 Discussion of options, pt notes she would like an injection, side effects of bleeding and infection discussed, would like to proceed with the injection, using aspectic technique 40 mg of depo medrol was injected into the left shoulder subacromial space, pt tolerated well, bandaid applied, may do activities as tolerated, f/u in 2 weeks. Discussed depending on how she is doing may recommend an MRI and she understands this documented in this encounter [facility] Healthcare Evaluation note 01-13-2023 Note Date & Type [...] elbow pain (ICD-10 - M25.522) Xray at [facility] - L hand dominant and nerve pain radiates to L hand with numbness. [facility] Other Evaluation note Note Date & Type Note Facility Evaluation note No assessment information availa [facility] Work Phone: Evaluation note Note Date & Type Note Facility Evaluation note Diagnosis Onset Date Adult wellness visit acute Left shoulder pain acute [facility] Work Phone: Evaluation note Note Date & Type Note Facility Evaluation note Diagnosis Left shoulder pain, unspecified chronicity- Primary Arthritis of left shoulder region Impingement of left shoulder documented in this encounter [facility] Healthcare Evaluation note Note Date & Type Note Facility Evaluation note Diagnosis Internal derangement of left shoulder- Primary documented in this encounter [facility] Healthcare History general Narrative - Reported Note Date & Type Note Facility History general Narrative - Reported Type Medical History Family history of stroke Surgical History COLONOSCOPY Surgical History TUBULAR ADENOMA Surgical History LASIK Surgical History HYST BSO Hospitalization History SEE SURGICAL HX [facility] Other Hospital Discharge instructions Note Date & Type Note Facility Hospital Discharge instructions Ambulatory OrdersReferral to Orthopedic Surgery Time Frame: 06/25/24, Location: None Selected [facility] Work Phone: Reason for Referral Reason *Waiting for appt 3 years of hip and mainly groin pain. Xray in 2020 showed mild arthritis Diagnosis 1 Left hip pain (M25.5 52) Referral Organization [facility] Referring Provider First Name Trudy Referring Provider Last Name Micaela Referring Provider Specialty Family [facility] cine Referred Organization Unknown Facility Referred Provider Xiang Reynoso II Referred Provider Specialty Orthopedic S urgery Referral Priority Routine General Notes Cathi Carrasco 12:42:40 PM >received tody, sent P2P Summary Purpose Family History No Family History Records Found Relationship Condition Age at Onset Recorded Date/T angie brother Malignant neoplasm Unknown Heart disease Unknown father Unknown Diabetes mellitus Unknown mother Unknown Hypertension Unknown son Hypertension Unknown sister Heart disease Unknown Advance Directives No Advanced Directives Records Found Advance Directive Response Recorded Date/ Time Advance Directives No March 14 4:02am Advance Directive Response Recorded Date/ Time Advance Directives No March 14 3:02am Chief Complaint and Reason for Visit Chief Complaint wellness, left shoul dima pain Reason for Visit Adult wellness visit Left shoulder pain Chief Complaint Z23 Additional Source Comments REASON FOR VISIT (unrecogniz ed section and content) Reason Comments Pain Reason Onset Date Comments MRI 08/14/2024 INFORMATION SOURCE (unrecogn ized section and content) DATE CREATED AUTHOR 01/13/2023 [facility] DATE CREATED AUTHOR AUTHOR'S ORGANIZ ATION 07/29/2024 [facility] DATE CREATED AUTHOR AUTHOR'S ORGANIZ ATION 09/12/2024 [facility] [employer] Care Teams (unrecognized sec tion and content) Team Status: Active Member Role Status Dates Trudy Hinojosa MD Primary Care Provider Active Team Status: Active Member Role Status Dates Trudy Hinojosa MD Primary Care Provide r, Attending Provider Active Start: June 25, 2024 Team Status: Inactive Member Role Status Dates Trudy Hinojosa MD Primary Care Provider Active Start: July 26, 2024 End: July 26, 2024 Rom Baird - [facility] Attending Provider Active Start: July 26, 2024 End: July 26, 2024 Team Status: Inactive Member Role Status Dates Xiang Reynoso II, MD Attending Provider Active Team Status: Inactive Member Role Status Dates Trudy Hinojosa MD Primary Care Provide r, Attending Provider Active Start: April 24, 2024 End: April 24, 2024 Job Developer Relationship Specialty Start Date End Date Trudy Hinojosa MD [address] [facility] [place] [id number] PCP - General Family Medicine 06/26/24 Job Developer Relationship Specialty Start Date End Date Trudy Hinojosa MD [address] [place] [id number] PCP - General Family Medicine 06/26/24 Job Developer Relationship Specialty Start Date End Date Trudy Hinojosa MD [address] [facility] [place] [id number] PCP - General Family Medicine 06/26/24 Goals (unrecognized section and content) Goals may [...] BE BASED ON THE PRIMARY CLINICAL RECORDS. [facility] provides no warranty or guarantee of the accuracy or completeness of information in this document.
== END 2024-11-27 15:36 | disposition home or self-care (01) ==
LOC: MAMMO 15:36
PROVIDERS: PCP Family Medicine; Visit Provider Family Medicine
DX: Z12.31 Encounter for screening mammogram for malignant neoplasm of breast (principal); Z80.0 Family history of malignant neoplasm of digestive organs
CPT/HCPCS: 77063; 77067